=== PATIENT | female | born 1995 | race Caucasian/White ===

== ENCOUNTER 2016-03-19 19:25 | Emergency (ER) | payer SELFPAY ==
[~2016-03-19] VITALS: Ht 175.3 cm; Wt 76.0 kg
[2016-03-19 19:39] VITALS: BP 141/66; PULSE 98; RESP 14; TEMP 99.7; O2SAT 99
[2016-03-19] MEDS ORDERED: ONDANSETRON ODT 4 MG TAB PO ONE (20:00)
== END 2016-03-19 22:15 | disposition left against medical advice (07) ==
LOC: NED 19:25
DX: J02.9 Acute pharyngitis, unspecified (principal)
CPT/HCPCS: 99281